=== PATIENT | female | born 1995 | race Caucasian/White ===

== ENCOUNTER 2021-01-22 05:41 | Inpatient (IN) ==
[2021-01-22] MEDS ORDERED: Buffered Lidocaine 1% SYRIN 1 ml INTRADERM ONE (07:29)
[2021-01-22] MEDS ORDERED: Lactated Ringers 1000 ml BAG 1,000 ML IV ONE (07:29)
[2021-01-22] MEDS ORDERED: Lactated Ringers 1000 ml BAG 1,000 ML IV SCH ×2 (08:00→22:00)
[2021-01-22 08:19] LABS: Urine Benzodiazepine Screen None Detected (None Detect); Urine Cannabinoids Screen None Detected (None Detect); Urine Opiates Screen None Detected (None Detect)
[2021-01-22 10:16] LABS: Rapid COVID-19 Molecular Undetected (Undetected)
[2021-01-22] MEDS ORDERED: Oxytocin in LR 20 UNITS/1,000 ML BAG IVPB SCH (20:10)
[2021-01-22] MEDS ORDERED: Oxytocin 10 UNITS/ML 1 ML VIAL IM ONE (20:10)
[2021-01-22] MEDS ORDERED: Oxytocin in LR 20 UNITS/1,000 ML BAG IVPB ONE (20:14)
[2021-01-22] MEDS ORDERED: Witch Hazel PAD JAR TOPICAL PRN (21:29)
[2021-01-22] MEDS ORDERED: Methylergonovine 0.2 mg AMPULE 1 ml AMP IM PRN (21:32)
[2021-01-22 21:46] LABS: ABS Monocytes 0.9 10^3/ul (0-0.8); ABS Neutrophils 12.6 10^3/ul (1.5-7.7); Hematocrit 30 % (35-47); Lymphocyte % 6.7 %; Mean Corpuscular HGB Conc 34 g/dL (31-36); Mean Corpuscular Hemoglobin 31 pg (27-31); Mean Corpuscular Volume 90 fL (80-97); Mean Platelet Volume 8.7 fL (7.4-10.4); Platelet Count 207 10^3/uL (150-450); Red Blood Count 3.28 10^6 /uL (3.70-4.87); Red Cell Distribution Width 15 % (10-15); White Blood Count 14.6 10^3/uL (3.5-10.8)
[2021-01-22] MEDS ORDERED: Lidocaine 1% VIAL 10 MG/ML VIAL ONE (23:15)
[2021-01-23 06:31] LABS: ABS Lymphocytes 1.8 10^3/ul (1.0-4.8); ABS Monocytes 0.9 10^3/ul (0-0.8); Eosinophil % 0.3 %; Hematocrit 24 % (35-47); Hemoglobin 8.4 g/dL (12.0-16.0); Lymphocyte % 15.6 %; Mean Corpuscular HGB Conc 35 g/dL (31-36); Mean Corpuscular Hemoglobin 31 pg (27-31); Mean Corpuscular Volume 89 fL (80-97); Mean Platelet Volume 8.8 fL (7.4-10.4); Platelet Count 179 10^3/uL (150-450); Red Blood Count 2.75 10^6 /uL (3.70-4.87); Red Cell Distribution Width 15 % (10-15); White Blood Count 11.8 10^3/uL (3.5-10.8)
[2021-01-23] MEDS ORDERED: Measles, Mumps,Rubella VACC 0.5 ML/VIAL SUBCUT ONE (09:00)
[2021-01-23] MEDS: Dibucaine 1% OINT 28.35 GM TUBE PR PRN ×2 (12:34→19:55)
[2021-01-24 10:45] VITALS: BP 107/74
[2021-01-24] MEDS ORDERED: Flu vaccine *QUAD* 2021-22* 0.5 ML SYRINGE IM ONE (12:00)
== END 2021-01-24 13:32 | disposition home or self-care (01) | DRG 560 ==
LOC: MCHOBOUT 05:41 → MCHOB 07:33
PROVIDERS: ADMIT Midwife; ATTEND Midwife